=== PATIENT | male | born 1955 | race Caucasian/White ===

== ENCOUNTER 2020-10-18 02:07 | Emergency (ER) | payer MEDICARE, SELFPAY ==
[2020-10-18 02:08] VITALS: BP 113/77; PULSE 65; RESP 20; TEMP 35.4; O2SAT 95; BMI 24.5
--- NOTE | 2020-10-18 02:29 | CT_ITS ---
EXAM: CT HEAD WITHOUT INTRAVENOUS CONTRAST : 1955 CLINICAL INDICATION: seizure TECHNIQUE: Multiple axial images were obtained of the head without intravenous contrast. This CT exam was performed using one or more of the following dose reduction techniques: automated exposure control, adjustment of the mA and/or kV according to patient size, and/or use of iterative reconstruction technique. This report was created using [employer] report generation technology. COMPARISON: None. FINDINGS: BRAIN AND EXTRA-AXIAL SPACES: Diffuse cerebral volume loss. Periventricular small vessel chronic ischemic change. Remote surgical changes of the right calvarium with volume loss/encephalomalacia in the right temporal lobe. No intra- or extra-axial hemorrhage. No intracranial mass or mass effect. Posterior fossa structures are unremarkable. No hydrocephalus. Basal cisterns are patent. BONES/JOINTS: Unremarkable. No discrete lytic or blastic abnormalities. VASCULATURE: Arterial calcifications. SINUSES: Unremarkable as visualized. Clear. MASTOID AIR CELLS: Unremarkable. Clear. ORBITS: Visualized globes, extraocular muscles, optic nerves and retrobulbar fat appear unremarkable. CT/Brain/Head without Contrast IMPRESSION: 1. No acute intracranial abnormalities. 2. Age-related and postsurgical changes. Individualized dose optimization techniques were used for this CT. at 0337 Reported and signed by: Luis Alberto Goel MD Electronically Signed: Luis Alberto Goel MD at 3:37 EDT Tel , Service support ,
[2020-10-18] MEDS: LORazepam 2 MG/ML Syringe 1 MG IV (02:37)
--- NOTE | 2020-10-18 02:43 | EX.ED.DYSGE1 ---
HPI History of Present Illness Chief Complaint: Seizure Informant: patient and spouse/S.O. Narrative Narrative: Patient presents with off-and-on seizures for the last 45 minutes to an hour. Patient does have a history of seizures and takes Depakote at 250 mg 3 times a day. His last seizure was back in March. He evidently does not have a lot of them. The seizures tonight were not as bad as the past but they have been going on for a while. He will have 20/30 40 seconds of seizures and then he will have none for a few minutes. His seizure or shaking of the left side mostly the arm. He stays awake and alert and the seizures do not go generalized. He does not have a headache fevers or any recent trauma. He has been under some stress due to a in the family recently. They have been working to move somebody because of this. He has not missed dosages of medicines. 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 They are not sure what type of tumor this was. It was done at [facility]. He is followed care with Magdalena gama. His first seizure was actually about a year and a half or 2 years after his surgery. Patient feels fine right now. Nothing really makes these better or worse. He did take an extra Depakote and Ativan at home when this started. [facility] Medical History History of brain tumor Stage 2 chronic kidney disease Manish's paralysis Allergy/AdvReac Type Severity Reaction Status Date / Time levetiracetam [From [facility]] Allergy PT UNSURE Verified 10/18/20 02:16 OF REACTION Surgical History History of heart artery stent History of heart bypass surgery History of neck surgery History of repair of right rotator cuff Social History Smoking Status: Former smoker ROS ROS ED Constitutional Constitutional ED: Denies chills, fever(s) or subjective Eyes Eyes: Denies blurry vision or change in vision ENT ENT ED: Denies rhinorrhea or sore throat Cardiovascular Cardiovascular: Denies chest pain or palpitations Respiratory/Chest Respiratory/Chest: Denies cough or dyspnea Gastrointestinal Gastrointestinal: Denies abdominal pain, nausea or vomiting Genitourinary Genitourinary ED: Denies dysuria Musculoskeletal Musculoskeletal: Denies back pain or neck pain Integumentary Denies rash Neurologic Neurologic: Reports other Details: See history of present illness. ; Denies headache(s), paresthesias or weakness Psychiatric Psychiatric: Denies anxiety or depression Endocrine Endocrinology: Denies polydipsia or polyuria Allergic/Immunologic Allergic/Immunologic ED: Denies urticaria EXAM Physical Exam Const Vital Signs: 10/18/20 02:08 Temperature 95.8 F L Temperature Source Temporal Pulse Rate 65 Respiratory Rate 20 H Blood Pressure 113/77 Blood Pressure Mean 89 Pulse Ox 95 Oxygen Delivery Method Room Air Positive well nourished and well developed General Appearance ED: well developed and NAD HEENT HEENT Narrative: Prior right-sided craniotomy well-healed. Eyes EOMs intact bilaterally Neck Neck Narrative: No meningismus. Chest Wall inspection of chest normal Resp normal respiratory effort and clear to auscultation bilaterally Cardio regular rate and regular rhythm GI normal to inspection, nondistended, normoactive bowel sounds and non-tender Palpation: soft Back/Spine no CVA tenderness Extremity normal to inspection General Extremety ED: Negative for tenderness Neuro oriented x3 Neuro Narrative: Patient's alert oriented and appropriate. He spontaneously wide-awake as I walk in the room. He is a reasonably good informant for details. While we were talking, he had about 20 seconds of a focal left upper extremity rhythmic seizure. It resolved on its own. He and his state that this is what they have been seeing. It did not generalize. Sensorium / Orientation: alert Psych mental status grossly normal Skin no rashes or lesions noted and no wounds MDM MDM MDM Narrative Medical decision making narrative: Patient CBC electrolytes show no acute process. Magnesium is good. No significant dehydration although clinically his was concerned about this. Valproic acid is just barely above normal. Patient has not had further seizure here. I had a long talk with them. He has been driving back and forth between their house and the parents farm. 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 He is also under stress because his might have breast cancer and they are going to find out for sure on the of this month. She thinks he has not been drinking enough water while working outside. They would prefer to go home. I explained that if they have recurrent seizures they may need to come back in. She states that his seizures occur like this. He will not have them for months at a time and then he he will have several of them close together. That is a typical pattern. He has a known seizure disorder. He is on appropriate meds. They are therapeutic. He lives with his . His CT shows no acute process. I do not think is unreasonable to go home but they should have a low threshold of returning if he is having any new or worsening symptoms. Lab Data Attestation: I reviewed the patient's lab results. Labs: Laboratory Results - last 24 hr 10/18/20 10/18/20 10/18/20 02:40 02:40 02:40 WBC 5.7 RBC 4.22 L Hgb 13.9 Hct 42.3 MCV 100.2 H MCH 32.9 H MCHC 32.9 RDW Std Deviation 51.7 H RDW Coeff of Valentina 14.1 Plt Count 151 MPV 9.5 Immature Gran % (Auto) 0.200 Neut % (Auto) 36.8 L Lymph % (Auto) 46.2 H Brantley % (Auto) 12.7 H Eos % (Auto) 3.7 Baso % (Auto) 0.4 Absolute Neuts (auto) 2.1 Absolute Lymphs (auto) 2.61 Nucleated RBC % 0 Sodium 143 Potassium 3.6 Chloride 108 H Carbon Dioxide 28.0 Anion Gap 7 BUN 13 Creatinine 0.95 Estim Creat Clear Calc 69.96 Est GFR (MDRD) Af Amer 102 Est GFR (MDRD) Non-Af 85 BUN/Creatinine Ratio 13.7 Glucose 73 L Calcium 8.8 Magnesium 2.2 Valproic Acid 101 H Radiography Diagnostic Testing: Radiology Impression Brain CT 10/18/20 02:29 IMPRESSION: 1. No acute intracranial abnormalities. 2. Age-related and postsurgical changes. Individualized dose optimization techniques were used for this CT. at 0337 Reported and signed by: Luis Alberto Goel MD Electronically Signed: Luis Alberto Goel MD at 3:37 EDT Tel , Service support , Discharge Plan Triage Chief Complaint: Seizure ED Provider: Benigno Mirnada Dx/Rx/DC Orders Clinical Impression: Breakthrough seizure Instructions: ED Seizure, Recurrent (Adult) Primary Care Provider: Miguel Minor Referrals: Miguel Minor, [Primary Care Provider] - 3-5 Days Disposition Disposition: Home, Self Care
[2020-10-18 02:49] LABS: Absolute Lymphocyte Count 2.61 X10^3/uL (0.83-4.51); Absolute Neutrophil Count 2.1 X10^3/uL (2.0-7.7); Basophil# 0.02 X10^3/uL; Basophil% 0.4 % (0-1); Eosinophil# 0.21 X10^3/uL; Eosinophils% 3.7 % (0-5); Hematocrit 42.3 % (40-54); Hemoglobin 13.9 g/dL (13.0-16.5); Lymphocyte # 2.61 X10^3/ul (0.83-4.51); Lymphocyte % 46.2 % (19-41); Mean Corp Hgb Conc 32.9 g/dL (32-36); Mean Corpuscular Hgb 32.9 pg (27.0-32.0); Mean Corpuscular Volume 100.2 fL (80-94); Mean Platelet Vol. 9.5 fl (6.2-12.0); Monocyte# 0.72 X10^3/uL; Monocyte% 12.7 % (0-10); NRBC Flagged by Analyzer 0 % (0-5); Neutrophil # 2.08 X10^3/uL (2.7-7.7); Neutrophil % 36.8 % (47-70); Platelet Count 151 K/mm3 (150-450); RBC Distribution Width CV 14.1 % (11.6-14.6); RBC Distribution Width SD 51.7 fl (35.1-43.9); Red Blood Count 4.22 M/mm3 (4.6-6.2); White Blood Count 5.7 K/mm3 (4.4-11.0)
[2020-10-18 02:59] LABS: Anion Gap 7 (5-15); BUN 13 mg/dL (7-18); BUN/Creat Ratio 13.7 RATIO (10-20); Calcium,Total 8.8 mg/dL (8.5-10.1); Chloride 108 mmol/L (98-107); Creatinine, Serum 0.95 mg/dL (0.70-1.30); EST Glomerular Filtration Rate 85 mL/min (>60); Est Glom Filt Rate - Afr Amer 102 mL/min (>60); Estimated Creatinine Clearance 69.96 ml/min; Glucose 73 mg/dL (74-106); Magnesium 2.2 mg/dL (1.6-2.6); Potassium 3.6 mmol/L (3.5-5.1); Sodium Level 143 mmol/L (136-145)
[2020-10-18 03:49] LABS: Valproic Acid (Depakene) Level 101 ug/mL (50-100)
[2020-10-18 04:35] VITALS: BP 117/78; PULSE 63; RESP 18; O2SAT 98
== END 2020-10-18 05:13 | disposition home or self-care (01) ==
PROVIDERS: Emergency Provider Emergency Medicine; PCP Family Medicine
DX: G40.909 Epilepsy, unspecified, not intractable, without status epilepticus (principal); Z79.899 Other long term (current) drug therapy; Z87.891 Personal history of nicotine dependence
CPT/HCPCS: 36415; 70450; 80048; 80164; 83735; 85025; 96361; 96374; 99284; J7040; A4216